=== PATIENT | male | born 1940 | race Caucasian/White ===

== ENCOUNTER → 2017-12-15 | Outpatient (CLI) | payer MEDICARE, MEDICAID ==
[2013-09-14 13:47] VITALS: BP 144/89
[~2017-12-15] MED LIST: ALPRAZOLAM0.25 MG PO; ASPIRIN E.C. 8181 M1 PO; CLARITIN10 MG PO; NATURE'S BLEN1000 MG PO; OMEPRAZOLE20 M1 PO; OMEPRAZOLE20 M2 PO; PREDNISONE; TRIAMCINOLONE0.1% TP; ULTRAM50 MG PO
== END ==
LOC: RAD 15:56
DX: R06.02 Shortness of breath (principal)

== ENCOUNTER → 2018-02-24 | Outpatient (CLI) | payer MEDICARE, MEDICAID ==
[2013-09-14 13:47] VITALS: BP 144/89
== END ==
LOC: RAD 10:49
DX: E04.1 Nontoxic single thyroid nodule (principal)

== ENCOUNTER → 2020-04-27 | Outpatient (CLI) | payer MEDICARE, MEDICAID ==
[2013-09-14 13:47] VITALS: BP 144/89
== END ==
LOC: RAD 15:45 → VAS 15:45
DX: I08.3 Combined rheumatic disorders of mitral, aortic and tricuspid valves (principal); I44.7 Left bundle-branch block, unspecified

== ENCOUNTER → 2020-05-12 | Outpatient (CLI) | payer MEDICARE, MEDICAID ==
[2013-09-14 13:47] VITALS: BP 144/89
== END ==
LOC: LAB 11:03
DX: Z20.828 Contact with and (suspected) exposure to other viral communicable diseases (principal)

== ENCOUNTER 2020-07-14 16:17 | Emergency (ER) | payer MEDICARE, MEDICAID ==
[~2020-07-14] VITALS: Wt 74.9 kg
[~2020-07-14 16:17] MED LIST changes: -ASPIRIN E.C. 8181 M1 PO; +ASPIRIN E.C. 8181 MG PO
[2020-07-14] MEDS ORDERED: THEOPHYLLINE400 M1 PO (16:49)
[2020-07-14] MEDS ORDERED: MELOXICAM15 MG PO (16:49)
[2020-07-14] MEDS ORDERED: FUROSEMIDE20 MG PO (16:50)
[2020-07-14] MEDS ORDERED: CARVEDILOL3.125 MG PO (16:50)
[2020-07-14 16:55] LABS: HEMATOCRIT 35.7 % (42.0-52.0); HEMOGLOBIN 11.4 g/dL (13.5-18.0); MEAN CELL VOLUME 89 fl (78-100); MEAN CORPUSCULAR HEMOGLOBIN 28 pg (27-31); MEAN CORPUSCULAR HGB CONC 32 g/dL (33-37); MEAN PLATELET VOLUME 10.7 fl (7.4-10.4); PLATELET COUNT 178 K/mm3 (130-400); RED BLOOD COUNT 4.03 M/mm3 (4.20-5.60); RED CELL DISTRIBUTION WIDTH 14.6 % (11.5-14.5); WHITE BLOOD COUNT 9.7 K/mm3 (4.8-10.8)
[2020-07-14 17:08] LABS: ALBUMIN 3.8 g/dL (3.4-4.8); POTASSIUM 3.7 mmol/L (3.5-5.1)
[2020-07-14 17:09] LABS: LYMPHOCYTE 8 % (20-51); NEUTROPHILS 86 % (42-75)
[2020-07-14 17:10] LABS: MONOCYTE 6 % (3-10); PROTHROMBIN TIME 12.1 SECONDS (9.0-12.0)
[2020-07-14 17:11] LABS: TOTAL PROTEIN 6.1 g/dL (6.2-8.1)
[2020-07-14 17:13] LABS: TOTAL BILIRUBIN 2.1 mg/dL (0.2-1.2)
[2020-07-14 17:25] LABS: TROPONIN-I 0.09 ng/mL (<0.030)
[2020-07-14 21:08] LABS: URINE APPEARANCE CLEAR; URINE BILIRUBIN NEGATIVE (NEGATIVE); URINE BLOOD TRACE (NEGATIVE); URINE COLOR YELLOW; URINE GLUCOSE NEGATIVE (NEGATIVE); URINE KETONE NEGATIVE (NEGATIVE); URINE LEUKOCYTE ESTERASE NEGATIVE (NEGATIVE); URINE NITRATE NEGATIVE (NEGATIVE); URINE PROTEIN(semi-quant) TRACE mg/dL (NEGATIVE); URINE UROBILINOGEN NORMAL (NORMAL); URINE WBC 0-1 /hpf (0-3)
[2020-07-14 21:09] LABS: URINE MUCUS PRESENT (NOT PRESENT)
[2020-07-14 22:05] VITALS: BP 97/63
[2020-07-15] MEDS ORDERED: FLOMAX0.4 MG PO (01:03)
== END 2020-07-14 22:11 | disposition other institution (70) ==
LOC: ED 16:17
PROVIDERS: Physician Assistant
DX: S22.31XA Fracture of one rib, right side, initial encounter for closed fracture (principal); I50.9 Heart failure, unspecified; Z20.828 Contact with and (suspected) exposure to other viral communicable diseases; Z86.73 Personal history of transient ischemic attack (TIA), and cerebral infarction without residual deficits; Z90.49 Acquired absence of other specified parts of digestive tract; Z90.89 Acquired absence of other organs; Z88.5 Allergy status to narcotic agent; Z79.1 Long term (current) use of non-steroidal anti-inflammatories (NSAID); Z79.82 Long term (current) use of aspirin; W01.198A Fall on same level from slipping, tripping and stumbling with subsequent striking against other object, initial encounter; Y92.009 Unspecified place in unspecified non-institutional (private) residence as the place of occurrence of the external cause
CPT/HCPCS: J1940; J7030; Q9967

== ENCOUNTER 2020-07-14 21:46 | Inpatient (IN) | payer MEDICARE, MEDICAID ==
[~2020-07-14] VITALS: Ht 162.6 cm; Wt 69.1 kg
[~2020-07-14 21:46] MED LIST changes: +CARVEDILOL3.125 MG PO; +FUROSEMIDE20 MG PO; +MELOXICAM15 MG PO; +THEOPHYLLINE400 M1 PO
[2020-07-14 23:16] VITALS: BP 97/63
[2020-07-14 23:20] VITALS: BP 97/63
[2020-07-15] MEDS ORDERED: FLOMAX0.4 MG PO (01:03)
[2020-07-15 01:54] VITALS: BP 102/72
[2020-07-15 05:31] VITALS: BP 95/62
[2020-07-15 07:52] LABS: HEMATOCRIT 39.3 % (42.0-52.0); HEMOGLOBIN 12.4 g/dL (13.5-18.0); MEAN CELL VOLUME 92 fl (78-100); MEAN CORPUSCULAR HEMOGLOBIN 29 pg (27-31); MEAN CORPUSCULAR HGB CONC 32 g/dL (33-37); MEAN PLATELET VOLUME 11.2 fl (7.4-10.4); PLATELET COUNT 151 K/mm3 (130-400); RED BLOOD COUNT 4.27 M/mm3 (4.20-5.60); WHITE BLOOD COUNT 6.4 K/mm3 (4.8-10.8)
[2020-07-15 08:03] LABS: LYMPHOCYTE 8 % (20-51); MONOCYTE 6 % (3-10); NEUTROPHILS 85 % (42-75)
[2020-07-15 08:26] LABS: CALCIUM 8.4 mg/dL (8.3-10.5); POTASSIUM 4.1 mmol/L (3.5-5.1); TROPONIN-I 2.49 ng/mL (<0.030)
[2020-07-15 10:03] VITALS: BP 87/50
[2020-07-15 14:01] VITALS: BP 86/47
[2020-07-15 18:00] VITALS: BP 86/54
[2020-07-15 21:30] VITALS: BP 85/62
[2020-07-16 01:41] VITALS: BP 85/61
[2020-07-16 06:08] VITALS: BP 90/59
[2020-07-16 08:16] LABS: TROPONIN-I 1.09 ng/mL (<0.030)
[2020-07-16 08:18] LABS: CALCIUM 8.8 mg/dL (8.3-10.5)
[2020-07-16 09:48] VITALS: BP 97/62
[2020-07-16 13:55] VITALS: BP 97/60
[2020-07-16 18:12] VITALS: BP 92/54
[2020-07-16 21:45] VITALS: BP 102/63
[2020-07-17] VITALS (7 sets, daily range): BP systolic 88–99; BP diastolic 53–67
[2020-07-17 07:38] LABS: POTASSIUM 3.9 mmol/L (3.5-5.1)
[2020-07-17 07:39] LABS: CALCIUM 8.8 mg/dL (8.3-10.5)
[2020-07-17 07:46] LABS: MAGNESIUM 2.05 mg/dL (1.60-2.60)
[2020-07-18 02:38] VITALS: BP 97/61
[2020-07-18 05:59] LABS: HEMATOCRIT 32.3 % (42.0-52.0); HEMOGLOBIN 10.7 g/dL (13.5-18.0); MEAN CELL VOLUME 87 fl (78-100); MEAN CORPUSCULAR HEMOGLOBIN 29 pg (27-31); MEAN CORPUSCULAR HGB CONC 33 g/dL (33-37); MEAN PLATELET VOLUME 11.3 fl (7.4-10.4); PLATELET COUNT 164 K/mm3 (130-400); RED CELL DISTRIBUTION WIDTH 14.5 % (11.5-14.5); WHITE BLOOD COUNT 5.6 K/mm3 (4.8-10.8)
[2020-07-18 06:10] VITALS: BP 95/60
[2020-07-18 06:13] LABS: POTASSIUM 3.9 mmol/L (3.5-5.1)
[2020-07-18 06:27] LABS: TROPONIN-I 0.68 ng/mL (<0.030)
[2020-07-18 06:37] LABS: ACANTHROCYTES 1+; LYMPHOCYTE 17 % (20-51); MONOCYTE 13 % (3-10); NEUTROPHILS 67 % (42-75); TARGET CELLS 1+
[2020-07-18 10:05] VITALS: BP 90/57
[2020-07-18 13:50] VITALS: BP 85/50
[2020-07-18 17:30] VITALS: BP 94/63
[2020-07-18 22:03] VITALS: BP 93/61
== END 2020-07-18 22:30 | disposition short-term general hospital (02) | DRG 292 ==
LOC: MED/SURG 21:46
PROVIDERS: Nurse Practitioner Primary Care; ADMIT Family Medicine
DX: I11.0 Hypertensive heart disease with heart failure (principal); S22.31XA Fracture of one rib, right side, initial encounter for closed fracture; I50.23 Acute on chronic systolic (congestive) heart failure; I35.0 Nonrheumatic aortic (valve) stenosis; I44.7 Left bundle-branch block, unspecified; I95.9 Hypotension, unspecified; K21.9 Gastro-esophageal reflux disease without esophagitis; Z20.828 Contact with and (suspected) exposure to other viral communicable diseases; W19.XXXA Unspecified fall, initial encounter; Y92.009 Unspecified place in unspecified non-institutional (private) residence as the place of occurrence of the external cause
CPT/HCPCS: J1650; J1940; J7030